=== PATIENT | female | born 1995 | race African-American/Black ===

== ENCOUNTER 2020-11-11 15:12 | Emergency (ER) | payer MEDICAID ==
[~2020-11-11] VITALS: Ht 165.1 cm; Wt 108.9 kg
[2020-11-11 17:53] LABS: MEAN CORPUSCULAR VOLUME 62 FL (80-99); PLATELET COUNT 442 K/UL (150-450); RED BLOOD COUNT 2.91 M/UL (4.20-5.40); RED CELL DISTRIBUTION WIDTH 18.7 % (11.6-14.8)
[2020-11-11 17:56] LABS: APPEARANCE,URINE SLIGHTLY CLOUDY; BILIRUBIN, URINE NEGATIVE (NEGATIVE); GLUCOSE, URINE (UA) NEGATIVE (NEGATIVE); KETONES,URINE NEGATIVE (NEGATIVE); LEUKOCYTE ESTERASE ,URINE 2+ (NEGATIVE); NITRITE,URINE POSITIVE (NEGATIVE); PH,URINE 6.5 (4.5-8.0); PROTEIN,URINE 2+ (NEGATIVE); UROBILINOGEN,URINE NORMAL MG/DL (0.0-1.0)
[2020-11-11 17:59] LABS: COLOR,URINE YELLOW
[2020-11-11 18:11] LABS: ANION GAP 9 mmol/L (5-15); BLOOD UREA NITROGEN 13 mg/dL (7-18); CALCIUM 9.4 MG/DL (8.5-10.1); CARBON DIOXIDE 26 MMOL/L (21-32); CHLORIDE 102 MMOL/L (98-107); CREATININE 0.8 MG/DL (0.55-1.30); POTASSIUM 3.1 MMOL/L (3.5-5.1); SODIUM 137 MMOL/L (136-145)
--- NOTE | 2020-11-11 18:11 | NUR ---
pt arrived for dizziness, vaginal bleeding/heavy period for 1.5 months. pt denies bleeding now. pt denies cough/fever/sob/nausea/vomiting/diarrhea. pt denies pmh/psh. pt states no pmd to see. VSS. pt placed on continuous cardiac/O2 monitor. iv placed, labs sent. pt medicated per eMAR. pt hgb 5.0. PA Jesica aware.
[2020-11-11 18:15] LABS: ALANINE AMINOTRANSFERASE 9 U/L (12-78); ALBUMIN 3.8 G/DL (3.4-5.0); ALBUMIN/GLOBULIN RATIO 0.8 (1.0-2.7); ALKALINE PHOSPHATASE 73 U/L (46-116); ASPARTATE AMINO TRANSFERASE 13 U/L (15-37); BILIRUBIN,TOTAL 0.3 MG/DL (0.2-1.0)
--- NOTE | 2020-11-11 18:50 | Diagnostic Imaging Report ---
EXAM: US Pelvis Transabdominal and Transvaginal, Complete CLINICAL HISTORY: PAIN TECHNIQUE: Real-time complete transabdominal and transvaginal pelvic ultrasound with image documentation. Transvaginal imaging was used for better evaluation of the endometrium and adnexa. COMPARISON: No relevant prior studies available. FINDINGS: Uterus/cervix: Uterus measures 9 x 4.3 x 3.9 cm. Unremarkable endometrial complex measuring 1 cm. Nabothian cyst in the cervix. No myometrial mass. Right ovary: Right ovary measures 3.9 x 2.2 x 3.4 cm. No suspicious lesion. Blood flow present. Left ovary: Left ovary measures 2.9 x 1.9 x 3.5 cm. No suspicious lesion. Blood flow present. Free fluid: Small volume free fluid in the cul-de-sac. IMPRESSION: No acute abnormality in the pelvis.
[2020-11-11 18:55] VITALS: BP 114/69
--- NOTE | 2020-11-11 19:14 | Emergency Room Report ---
History of Present Illness General Chief Complaint: Lower Back Pain or Injury Source: Patient (Jesica Bright) Present Illness HPI 25-year-old female who is G4, and no other past medical history here complaining of 2 months of heavy vaginal bleeding and clotting. Reports of 1 week of dizziness denies shortness of breath and chest pain. Denies . Reports that prior to 2 months ago her menses were regular. Denies any history of uterine fibroids or ovarian cyst. Patient is morbidly obese. 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 Denies tobacco smoke, drug use, alcohol intake. Speaking in full sentences, has a steady gait. Denies diffuse abdominal pain, nausea vomiting diarrhea. Denies blood in stool. Denies bleeding rectally. (Jesica Bright) Allergies: Coded Allergies: No Known Allergies (Unverified , 11/11/20) COVID-19 Screening Contact w/high risk pt: No Experienced COVID-19 symptoms?: No COVID-19 Testing performed HAND THERAPIST: No (Jesica Bright) Patient History Past Medical History: see triage record Past Surgical History: none Pertinent Family History: none Now: No Immunizations: UTD Reviewed Nursing Documentation: PMH: Agreed; PSxH: Agreed (Jesica Bright) Nursing Documentation-PMH Past Medical History: No Stated History (Jesica Bright) Review of Systems All Other Systems: negative except mentioned in HPI (Jesica Bright) Physical Exam Vital Signs Date Time Temp Pulse Resp B/P (MAP) Pulse Ox O2 Delivery O2 Flow Rate FiO2 11/11/20 16:55 98.2 94 18 136/76 (96) 98 Room Air Sp02 EP Interpretation: reviewed, normal General Appearance: no apparent distress, alert, GCS 15, non-toxic Head: normocephalic, atraumatic Eyes: bilateral eye normal inspection, bilateral eye PERRL ENT: no angioedema Neck: supple Respiratory: no rhonchi, no retraction Cardiovascular #1: regular rate, rhythm, no edema, no murmur Gastrointestinal: non tender, soft, no mass, no organomegaly, no peritonitis, no bruit Rectal: deferred Genitourinary: no CVA tenderness Musculoskeletal: back normal Neurologic: alert, motor strength/tone normal, oriented x3, sensory intact, responsive, speech normal Psychiatric: judgement/insight normal, memory normal, mood/affect normal, no suicidal/homicidal ideation Skin: no rash Lymphatic: no adenopathy (Jesica Bright) Procedures Critical Care Time Critical Care Time Total critical care time; approximately 31 minutes. Due to a high probability of clinically significant, life threatening deterioration, the patient required my highest level of preparedness to intervene emergently and I personally spent this critical care time directly and personally managing the patient. This critical care time included obtaining a history; examining the patient; pulse oximetry; ordering and reviewing of studies; arranging urgent treatment with development of a management plan; evaluation of patient's response to treatment; frequent reassessment; and, discussions with other providers. This critical care time was performed to assess and manage the high probability of imminent, life-threatening deterioration that could result in multiorgan failure it was exclusive of separate billable procedures and treating other patients and teaching time. Please see MDM section and the rest of the note for further information on patient assessment and treatment. (Jesica Bright) Medical Decision Making PA Attestation All diagnoses and treatment plans were reviewed and discussed with my supervising physician Dr. Reed (Jesica Bright) Diagnostic Impression: Primary Impression: Symptomatic anemia Additional Impressions: DUB (dysfunctional uterine bleeding) UTI (urinary tract infection) Left against medical advice Severe anemia ER Course 25-year-old female who is G4, and no other past medical history here complaining of 2 months of heavy vaginal bleeding and clotting. Reports of 1 week of dizziness denies shortness of breath and chest pain. Denies . Reports that prior to 2 months ago her menses were regular. Denies any history of uterine fibroids or ovarian cyst. Patient is morbidly obese. 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 Denies tobacco smoke, drug use, alcohol intake. Speaking in full sentences, has a steady gait. Denies diffuse abdominal pain, nausea vomiting diarrhea. Denies blood in stool. Denies bleeding rectally. Ddx considered but are not limited to: Symptomatic anemia, asymptomatic anemia, uterine fibroids, ovarian cyst, dysfunctional uterine bleeding, UTI, pyelonephritis, urinary incontinence, prolapsed bladder Vital signs: are WNL, pt. is afebrile H&PE are most consistent with: Symptomatic anemia, dysfunctional uterine bleeding,UTI ORDERS: UA, urine cx, CBC, CMP, type and screen, PT PTT, hCG, pelvic ultrasound ED INTERVENTIONS: NS bolus, blood transfusion, rocephin Prior approval for admission, patient left AGAINST MEDICAL ADVICE, patient was explained by Dr. Reed the risks of leaving AGAINST MEDICAL ADVICE due to very low hemoglobin, risk of however patient decided to leave AGAINST MEDICAL ADVICE. Patient had full judgment of at the time of signing AGAINST MEDICAL ADVICE. (Jesica Bright) ER Course I participate in the care of this patient along with BARBRA Acevedo Briefly, this a 25-year-old female coming in with 1 month of dysfunctional uterine bleeding. She is found to have severe anemia with a hemoglobin of 5.0. Had arrange for transfusion and admission. Informed by nursing staff that patient wants to leave the hospital. She states she does want to stay in the hospital alone. No explained to her that with a hemoglobin as low as hers she could lose consciousness which could result in significant injury and even . She also may continue to bleed and cause even further anemia and again even possibly . I explained to her if she needs transfusion as soon as possible to stabilize her. She repeated this back to me and verbalized understanding. She again stated she did not want to stay. She said she would come back later. I wrote a prescription for Keflex to treat her urinary tract infection and strongly encouraged her to return to the hospital soon as possible for transfusion. Patient signed AMA paperwork and left the emergency department. (Emre Reed MD) CT/MRI/US Diagnostic Results CT/MRI/US Diagnostic Results : Imaging Test Ordered: pelvic US Impression COMPARISON: No relevant prior studies available. FINDINGS: Uterus/cervix: Uterus measures 9 x 4.3 x 3.9 cm. Unremarkable endometrial complex measuring 1 cm. Nabothian cyst in the cervix. No myometrial mass. Right ovary: Right ovary measures 3.9 x 2.2 x 3.4 cm. No suspicious lesion. Blood flow present. Left ovary: Left ovary measures 2.9 x 1.9 x 3.5 cm. No suspicious lesion. Blood flow present. Free fluid: Small volume free fluid in the cul-de-sac. IMPRESSION: No acute abnormality in the pelvis. (Jesica Bright) Last Vital Signs Date Time Temp Pulse Resp B/P (MAP) Pulse Ox O2 Delivery O2 Flow Rate FiO2 11/11/20 18:55 98 18 114/69 100 Room Air 11/11/20 16:55 98.2 (Jesica Bright) Disposition: AGAINST MEDICAL ADVICE Condition: Serious Scripts Cephalexin* (KEFLEX*) 500 Mg Capsule 500 MG ORAL EVERY 12 HOURS, #14 CAP 0 Refills Prov: Emre Reed MD 11/11/20 Referrals: NON PHYSICIAN (PCP) Jesica Bright Nov 11, 2020 19:14 Emre Reed MD Nov 11, 2020 19:40
[2020-11-11] MEDS ORDERED: cefTRIAXone 1 GM in NS 55 ML IVPB ONE (19:30)
--- NOTE | 2020-11-11 19:30 | NUR ---
ED Nurse Note: pt stated she did not want blood transfusion or to be admitted I discussed all risk with pt pertaining to critically low hgb levels patient stated she understood and still wanted to leave. MD was informed and spoke with the patient she still decided against staying and recieving the blood transfusion.
[2020-11-11] MEDS ORDERED: CEPHALEXIN500 MG ORAL (19:33)
--- NOTE | 2020-11-11 19:37 | NUR ---
ED Nurse Note: Patient left AMA, pt is aox4, on room air, with stable vital signs. pt was given dc and prescription instructions, pt was able to verbalize understanding, pt id band and iv site removed without complications. pt is able to ambulate with steady gait. pt took all belongings.
--- NOTE | 2020-11-11 19:37 | NUR ---
AMA: SEE AMA FORM.
== END 2020-11-11 19:37 | disposition left against medical advice (07) ==
LOC: EMR 15:28
DX: N93.9 Abnormal uterine and vaginal bleeding, unspecified (principal); D64.9 Anemia, unspecified; N39.0 Urinary tract infection, site not specified; E66.01 Morbid (severe) obesity due to excess calories; Z68.39 Body mass index [BMI] 39.0-39.9, adult; N88.8 Other specified noninflammatory disorders of cervix uteri
CPT/HCPCS: 36415; 76830; 76856; 80053; 80307; 81003; 81025; 85007; 85025; 86850; 86900; 86901; 86920; 87086; 87181; 96361; 96374; J0696; J7030; Z7502; 99291

== ENCOUNTER 2020-11-12 11:48 | Emergency (ER) | payer MEDICAID ==
[~2020-11-12] VITALS: Ht 165.1 cm; Wt 108.9 kg
[~2020-11-12 11:48] MED LIST: CEPHALEXIN500 MG ORAL
--- NOTE | 2020-11-12 12:59 | Emergency Room Report ---
History of Present Illness General Chief Complaint: Abnormal Labs Source: Patient Present Illness HPI Patient was seen yesterday. She had menstrual cycle that lasted 2 months and was extremely heavy. Her hgb was 5.0. She was afraid of transfusion and signed out AMA. Last night she had HUMPHREY and dizziness and decided to return for blood. Patient denies ongoing bleeding at this time. She also denies vomiting, melena or prior h/o anemia. She denies exposure to COVID + contacts. No fevers, chills, sore throat, chest pain, palpitations, nausea, diarrhea, dysuria, abdominal pain, visual changes, headache. An ultrasound was performed yesterday which was normal. 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 COVID-19 Screening: Negative COVID-19 COVID-19 Testing Source: unk Patient History Past Medical History: see triage record, old chart reviewed Social History: Denies: smoking Social History Narrative from home Last Menstrual Period: 1-1 Now: No Reviewed Nursing Documentation: PMH: Agreed; PSxH: Agreed Nursing Documentation-PMH Past Medical History: No Stated History Review of Systems All Other Systems: negative except mentioned in HPI Physical Exam Vital Signs Date Time Temp Pulse Resp B/P (MAP) Pulse Ox O2 Delivery O2 Flow Rate FiO2 11/12/20 12:12 98.6 106 20 120/65 (83) 98 Sp02 EP Interpretation: reviewed, normal General Appearance: well appearing, no apparent distress, GCS 15 Head: normocephalic Eyes: bilateral eye PERRL, bilateral eye EOMI, bilateral eye conjunctivae pale ENT: moist mucus membranes Neck: supple Respiratory: lungs clear, normal breath sounds Cardiovascular #1: regular rate, rhythm Cardiovascular #2: 2+ radial (R) Gastrointestinal: normal inspection, normal bowel sounds, non tender, no mass, non-distended, overweight Genitourinary: no CVA tenderness Musculoskeletal: back normal, normal range of motion, gait/station normal Neurologic: alert, oriented x3, grossly normal Psychiatric: mood/affect normal Skin: no rash, warm/dry, pallor Procedures Critical Care Time Critical Care Time Total Critical Care Time: 35 min bedside evaluation and treatment excludes procedures (EKG). Reason for critical care: Critical anemia, IV access, discussion and arrangement with excepting transfer DrOpal Possible complications: hypotension, hypertension, ME, shock, arrhythmias, metabolic acidosis, end organ damage, respiratory failure. Interventions: Assessment, IV under ultrasound, blood draw at that time, discussion with blood bank. Informed consent with patient regarding transfusion. Discussion with transferring physician. Repeat evaluation during transfusion.. Course: Patient represented after signing out AMA with profound symptomatic anemia. Reassessment. IV established and blood drawn by me under ultrasound. Informed consent undertaken with patient regarding blood transfusion. Discussion with excepting physician. Reevaluation during transfusion. Consultations: nursing staff, blood bank, transferring physician Performed by: Dr. Henao Tolerated well condition = serious Medical Decision Making Diagnostic Impression: Primary Impression: Symptomatic anemia Additional Impression: DUB (dysfunctional uterine bleeding) ER Course Patient we presents after signing out AGAINST MEDICAL ADVICE yesterday with severe anemia with continued symptoms. Differential includes severe anemia, sy mptomatic anemia amongst others. Labs need to be repeated. The patient does not appear to be in hemorrhagic shock at this time however due to the extremely low hemoglobin yesterday blood will be ordered. IV established by me using ultrasound in the right antecubital area. Bloods also obtained by me. Informed consent undertaken by me. Patient agrees to blood transfusion. Blood ordered for patient.. Discussed with who accepts patient in transfer. Blood transfusing without issue and patient tolerating this well. Patient stable for transfer. Laboratory Tests Test 11/12/20 12:20 11/12/20 12:48 Urine Color Pale yellow Urine Appearance Slightly cloudy Urine pH 7 (4.5-8.0) Urine Specific [place] 1.010 (1.005-1.035) Urine Protein 2+ (NEGATIVE) H Urine Glucose (UA) Negative (NEGATIVE) Urine Ketones Negative (NEGATIVE) Urine Blood Negative (NEGATIVE) Urine Nitrite Negative (NEGATIVE) Urine Bilirubin Negative (NEGATIVE) Urine Urobilinogen Normal MG/DL (0.0-1.0) Urine Leukocyte Esterase 2+ (NEGATIVE) H Urine RBC 0-2 /HPF (0 - 2) Urine WBC 15-20 /HPF (0 - 2) H Urine Squamous Epithelial Cells Few /LPF (NONE/OCC) Urine Bacteria Moderate /HPF (NONE) H Urine HCG, Qualitative Negative (NEGATIVE) White Blood Count 7.7 K/UL (4.8-10.8) Red Blood Count 2.75 M/UL (4.20-5.40) L Hemoglobin 4.7 G/DL (12.0-16.0) *L Hematocrit 17.4 % (37.0-47.0) L Mean Corpuscular Volume 63 FL (80-99) L Mean Corpuscular Hemoglobin 17.3 PG (27.0-31.0) L Mean Corpuscular Hemoglobin Concent 27.3 G/DL (32.0-36.0) L Red Cell Distribution Width 16.9 % (11.6-14.8) H Platelet Count 427 K/UL (150-450) Mean Platelet Volume 6.9 FL (6.5-10.1) Neutrophils (%) (Auto) % (45.0-75.0) Lymphocytes (%) (Auto) % (20.0-45.0) Monocytes (%) (Auto) % (1.0-10.0) Eosinophils (%) (Auto) % (0.0-3.0) Basophils (%) (Auto) % (0.0-2.0) Differential Total Cells Counted 100 Neutrophils % (Manual) 69 % (45-75) Lymphocytes % (Manual) 25 % (20-45) Monocytes % (Manual) 6 % (1-10) Eosinophils % (Manual) 0 % (0-3) Basophils % (Manual) 0 % (0-2) Band Neutrophils 0 % (0-8) Platelet Estimate Adequate Platelet Morphology Normal Polychromasia Hypochromasia 2+ Anisocytosis 1+ Microcytosis 2+ Ovalocytes Occasional Prothrombin Time 11.9 SEC (9.30-11.50) H Prothrombin Time INR 1.1 (0.9-1.1) Activated Partial Thromboplast Time 22 SEC (23-33) L Sodium Level 140 MMOL/L (136-145) Potassium Level 3.2 MMOL/L (3.5-5.1) L Chloride Level 105 MMOL/L (98-107) Carbon Dioxide Level 26 MMOL/L (21-32) Anion Gap 9 mmol/L (5-15) Blood Urea Nitrogen 9 mg/dL (7-18) Creatinine 0.9 MG/DL (0.55-1.30) Estimated Glomerular Filtration Rate > 60 mL/min (>60) Glucose Level 99 MG/DL (74-106) Calcium Level 8.9 MG/DL (8.5-10.1) Total Bilirubin 0.3 MG/DL (0.2-1.0) Aspartate Amino Transferase (AST) 10 U/L (15-37) L Alanine Aminotransferase (ALT) 12 U/L (12-78) Alkaline Phosphatase 72 U/L (46-116) Total Protein 8.0 G/DL (6.4-8.2) Albumin 3.6 G/DL (3.4-5.0) Globulin 4.4 g/dL Albumin/Globulin Ratio 0.8 (1.0-2.7) L Lipase 116 U/L (73-393) Rhythm Strip Diag. Results EP Interpretation: yes Rhythm: NSR, no PVC's, no ectopy Last Vital Signs Date Time Temp Pulse Resp B/P (MAP) Pulse Ox O2 Delivery O2 Flow Rate FiO2 11/12/20 15:36 90 20 112/58 100 Room Air 11/12/20 14:03 98.3 Status: improved Disposition: SHORT-TERM HOSP Condition: Serious Yan Henao MD Nov 12, 2020 12:59
[2020-11-12 13:03] LABS: HEMATOCRIT 17.4 % (37.0-47.0); MEAN CORPUSCULAR VOLUME 63 FL (80-99); PLATELET COUNT 427 K/UL (150-450); RED BLOOD COUNT 2.75 M/UL (4.20-5.40); RED CELL DISTRIBUTION WIDTH 16.9 % (11.6-14.8); WHITE BLOOD COUNT 7.7 K/UL (4.8-10.8)
[2020-11-12 13:06] LABS: APPEARANCE,URINE SLIGHTLY CLOUDY; BILIRUBIN, URINE NEGATIVE (NEGATIVE); COLOR,URINE PALE YELLOW; GLUCOSE, URINE (UA) NEGATIVE (NEGATIVE); KETONES,URINE NEGATIVE (NEGATIVE); LEUKOCYTE ESTERASE ,URINE 2+ (NEGATIVE); NITRITE,URINE NEGATIVE (NEGATIVE); PH,URINE 7 (4.5-8.0); PROTEIN,URINE 2+ (NEGATIVE); UROBILINOGEN,URINE NORMAL MG/DL (0.0-1.0)
[2020-11-12 13:08] LABS: HEMOGLOBIN 4.7 G/DL (12.0-16.0)
--- NOTE | 2020-11-12 13:12 | NUR ---
Patient present to the ER for blood transfusion. She was at this ER yesterday with low Hgb and a pending blood transfusion but refused to stay yesterday. returned today to complete the process. NKA 20G placed to [facility] Awaiting lab preparation for blood. Type and screen sent
[2020-11-12 13:13] LABS: ANION GAP 9 mmol/L (5-15); BLOOD UREA NITROGEN 9 mg/dL (7-18); CALCIUM 8.9 MG/DL (8.5-10.1); CARBON DIOXIDE 26 MMOL/L (21-32); CHLORIDE 105 MMOL/L (98-107); CREATININE 0.9 MG/DL (0.55-1.30); POTASSIUM 3.2 MMOL/L (3.5-5.1); SODIUM 140 MMOL/L (136-145)
[2020-11-12 13:18] LABS: ALANINE AMINOTRANSFERASE 12 U/L (12-78); ALBUMIN 3.6 G/DL (3.4-5.0); ALBUMIN/GLOBULIN RATIO 0.8 (1.0-2.7); ALKALINE PHOSPHATASE 72 U/L (46-116); ASPARTATE AMINO TRANSFERASE 10 U/L (15-37); BILIRUBIN,TOTAL 0.3 MG/DL (0.2-1.0)
[2020-11-12 13:20] LABS: INR 1.1 (0.9-1.1)
--- NOTE | 2020-11-12 13:42 | NUR ---
Blood transfusion started @ 75mL/h. Patient tolerating well. Will monitor and re-check vital in 15 mins
--- NOTE | 2020-11-12 13:57 | NUR ---
No adverse reactions noted for transfusion. V/S stable.
--- NOTE | 2020-11-12 13:59 | NUR ---
Gave peer report for transfer.
[2020-11-12 14:52] VITALS: BP 116/64
[2020-11-12 15:36] VITALS: BP 112/58
--- NOTE | 2020-11-12 15:36 | NUR ---
Tolerating transfer well. Rate changed to 85
--- NOTE | 2020-11-12 17:27 | NUR ---
Report called to Slick at [facility].- RN Graphic Illustrator. Patient will be transferred via BLS to room 207-C
== END 2020-11-12 18:00 | disposition short-term general hospital (02) ==
LOC: EMR 13:03
DX: D64.9 Anemia, unspecified (principal); N93.8 Other specified abnormal uterine and vaginal bleeding
CPT/HCPCS: 36415; 36430; 80053; 81003; 81025; 83690; 85007; 85025; 85610; 85730; 86920; 87086; 87181; 96360; 96361; P9016; Z7502; 99291